=== PATIENT | female | born 1985 ===

== ENCOUNTER 2018-08-18 12:34 | Outpatient (CLI) | payer MEDICAID | END 2018-08-18 12:35 | disposition home or self-care (01) | LOC: RAD 12:34 ==

== ENCOUNTER 2018-08-26 10:35 | Outpatient (CLI) | payer MEDICAID | END 2018-08-26 10:36 | disposition home or self-care (01) | LOC: RAD 10:35 ==

== ENCOUNTER 2018-09-25 12:16 | Outpatient (CLI) | payer MEDICAID | END 2018-09-25 12:17 | disposition home or self-care (01) | LOC: RAD 12:16 ==